=== PATIENT | male | born 1955 | race African-American/Black ===

== ENCOUNTER 2019-05-21 07:49 | Day surgery (SDC) | payer MEDICARE ==
--- NOTE | 2019-05-21 09:38 | RAD ---
TOTAL SPINE MYELOGRAM: 05/21/2019 HISTORY: Myelopathy and pain. FINDINGS: Informed consent obtained prior to the procedure. Dietetic Intern imaging of the cervical spine demonstrates anterior discectomy and fusion hardware at C3-4. The re is disc space narrowing with degenerative endplate change and anterior osteophyte formation at C6-7. There is prominent multilevel anterior osteophyte formation throughout the mid and lower thorac ic spine. Dietetic Intern imaging of the lumbar spine demonstrates multilevel disc space narrowing. Bilateral pedicle screws are present at the L4 and L5 levels with vertically oriented interlocking rods and an intervertebral disc device. There is no significant anterolisthesis or retrolisthesis. At the L5-S1 level there is disc space narrowing and degenerative endplate change. The patient was placed on the fluoroscopic table in the oblique prone position and the skin overlying the lower lumbar spine was prepped and draped in a normal sterile fashion. The skin was anesthetized at the L4 level. With intermittent fluoroscopic guidance, a 22 gauge spinal needle was a dvanced into the thecal sac and removal of the stylet yielded clear cerebrospinal fluid. Approximately 12 cc of Isovue-300 was injected, outlining the nerve roots of the cauda equina and paul ling the thecal sac. The needle was removed. The patient tolerated the procedure well. The patient's head was tilted down to extend contrast media into the thoracic and cervical regions. CT myelogram was then performed of the cervical, thoracic, and lumbar spine. EXPOSURE DATA: 1.5 minutes of fluoroscopic time 687.8 microgray/cm2 IMPRESSION: Multilevel postoperative and degenerative change within the spine as detailed above. Successful total spine myelogram. CT myelogram to follow. Transcribed Date/Time: 05/21/2019 10:57 AM
--- NOTE | 2019-05-21 09:54 | CT ---
CT MYELOGRAM CERVICAL SPINE: 05/21/2019 HISTORY: Cervical spondylosis. COMPARISON: None. TECHNIQUE: Following the intrathecal administration of iodinated contrast media, axial CT imaging is obtained at 2.5 mm intervals through the cervical spine with coronal and sagittal reformatted imaging. FINDINGS: Anterior discectomy and fusion hardware present at C3-4. There is mild/moderate degenerative change at the atlantoaxial interspace. The craniocervical junctio n is intact. There is mild anterolisthesis at C3-4 measuring 3 mm, at C6-7 measuring 4 mm and at C7-T1 measuring 4 mm. The C1 ring is intact. The dens, occipital condyles and the atlantoaxial relationship demonstrate no acute findings. C2-3: Right sided facet and uncovertebral osteophyte formation causes mild right neural foraminal ella nosis. There is left facet and uncovertebral osteophyte. No central canal or left neural foraminal stenosis. C3-4: Small posterior osteophyte with mild central canal stenosis. Bilateral facet and uncovertebral osteophyte formation, right greater than left. Moderate bilateral neural foraminal stenosis, right greater than left. C4-5: Minimal disc bulge. No significant central canal stenosis. Prominent left sided facet and uncov ertebral osteophyte formation with moderate/severe left neural foraminal stenosis. No significant right neural foraminal stenosis. C5-6: No significant central canal stenosis. Bilateral facet and uncovertebral osteophyte formation, left greater than right. Moderate left and mild right neural foraminal stenosis. C6-7: There is disc space narrowing and mild anterior osteophyte formation. Bilateral facet hypertrop hy noted with mild/moderate right neural foraminal stenosis and mild left neural foraminal stenosis. C7-T1: Bilateral facet and uncovertebral osteophyte formation with moderate/severe bilateral neural f oraminal stenosis, left greater than right. Mild central canal stenosis on the basis of disc bulge. No acute fracture. No lytic or blastic bone lesion. Imaged lung apices appear unremarkable. IMPRESSION: Postoperative and degenerative change within the cervical spine as detailed above. Transcribed Date/Time: 05/21/2019 10:06 AM
--- NOTE | 2019-05-21 10:21 | CT ---
CT MYELOGRAM LUMBAR SPINE: 05/21/2019 HISTORY: Lumbar spondylosis. COMPARISON: None. TECHNIQUE: Axial CT imaging through the lumbar spine at 2.5 mm intervals following the intrathecal administratio n of iodinated contrast media. Coronal and sagittal reformatted imaging obtained. FINDINGS: There is good opacification of the contents of the thecal sac. 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 There is thickening of the left adrenal gland which attains an adreniform shape. There is a punctate calcification within the partially imaged right kidney suggesting a small intrarenal calculus. There are bilateral L4 and L5 pedicle screws with vertically oriented interlocking rods. There is an intervertebral disc device at the L4-5 level. The conus medullaris terminates at L1-2. There is mild anterolisthesis of L4 on L5 measuring 4 mm. T12-L1: Minimal disc bulge. Moderate bilateral facet hypertrophy. Anterior and right lateral osteophy te formation. Mild central canal stenosis and mild bilateral neural foraminal stenosis. L1-2: There is disc space narrowing with mild disc bulge and anterior osteophyte formation. There is also mild bilateral facet hypertrophy. There is mild central canal stenosis and mild/moderate bilateral neural foraminal stenosis. L2-3: There is disc space narrowing and vacuum disc formation with anterior osteophyte formation and disc bulge. There is a suggestion of a central disc extrusion with superior migration on the sagittal imaging, leading to severe central canal stenosis at the axial level of the L2-3 disc space as well as severe stenosis posterior to the mid/lower aspect of the L2 vertebral body. There is prominent bilateral facet hypertrophy and hypertrophy of the ligamentum flavum at the L2-3 level as w ell with associated moderate/severe bilateral neural foraminal stenosis. L3-4: There is disc space narrowing and disc bulge. There is severe central canal stenosis. Vacuum di sc formation noted. Bilateral facet hypertrophy and hypertrophy of the ligamentum flavum noted. Anterior and right lateral osteophyte formation noted with severe bilateral neural foraminal stenosis . Throughout the entire length of the L3 vertebral body the nerve roots of the cauda equina appear compressed and clumped with a posterior location. L4-5: Bilateral facet hypertrophy. No significant central canal or neural foraminal stenosis. L5-S1: There is disc space narrowing and vacuum disc formation with a disc osteophyte complex. There is prominent bilateral facet hypertrophy with moderate bilateral neural foraminal stenosis. There is mild central canal stenosis. No worrisome lytic or blastic bone lesion. No acute fracture or evidence of dislocation. There is prominent redundancy and serpiginous nature of the nerve roots of the cauda equina posterior to the L4 and L5 vertebral body. In addition, there are areas of thickening and clumping of nerve roots of the cauda equina posteriorly/laterally at the L4 and L5 levels. There are numerous serpiginous/tortuous structures adjacent to the distal thoracic cord and involving the thecal sac just inferior to the cauda equina, which is felt to most likely represent numerous tortuous redundant nerve roots of the cauda equina. Some of the serpiginous structures within the the karson sac, including abutting the distal cord, may represent vascular structures. This would most likely be on the basis of venous congestion secondary to the degree of severe stenosis at L2 through L4. A vascular lesion could not be fully excluded but is felt less likely given the severe degenerative change within the lumbar spine. IMPRESSION: Postoperative and degenerative change within the lumbar spine as detailed above. There is severe sten osis from the mid portion of the L2 vertebral body through the L3-4 disc space. There is compression of nerve roots of the cauda equina from the L2 level through the L3-4 level with associat ed marked tortuosity and redundancy of nerve roots of the cauda equina above and below these levels. Clumping of nerve roots of the cauda equina distally suggests a degree of arachnoiditis. Ther e is a probable central disc extrusion with superior migration emanating from the L2-3 disc as well. These findings may be better assessed with MRI. The levels in question are above the postoperative sepulveda rdware and thus would likely be adequately assessed via MRI. Transcribed Date/Time: 05/21/2019 10:44 AM
--- NOTE | 2019-05-21 10:30 | CT ---
CT MYELOGRAM THORACIC SPINE: 05/21/2019 HISTORY: Myelopathy. TECHNIQUE: Axial CT imaging at 2 mm intervals through the thoracic spine with coronal and sagittal reformatted i maging. FINDINGS: The imaged lung parenchyma appears grossly unremarkable. There is mild diffuse dilation of the esopha haile, etiology uncertain. This may be better assessed with a follow-up barium swallow. These findings can be seen on the basis of a distal esophageal stricture. There is good opacification of the contents of the thecal sac within the thoracic spine. A punctate f ocus of gas is seen posterior to the T10 vertebral body, likely associated with contrast injection. There are subtle serpiginous filling defects along the ventral and dorsal aspect of the distal thorac ic cord at the T10, T11, and T12 levels, better assessed on the lumbar spine CT myelogram. There is no significant anterolisthesis or retrolisthesis noted within the thoracic spine and there is no sign ificant central canal stenosis within the thoracic spine. On the basis of minimal disc bulge there is mild central canal stenosis at T10-11 and T11-12. There is prominent anterior osteophyte formation on the right, which includes the T5-6 through T9-10 levels. There is multilevel bilateral facet hypertrophy noted throughout the thoracic spine with multilevel bilateral mild neural foraminal stenosis. No acute osseous abnormality is seen. No worriso me lytic or blastic bone lesion. IMPRESSION: No significant central canal stenosis within the thoracic spine. There is a mild dilation of the esophagus. Recommend GI consultation and barium swallow CODE T Transcribed Date/Time: 05/21/2019 10:50 AM
[2019-05-21 12:57] VITALS: BMI 30.4
[2019-05-21 13:02] VITALS: BP 149/75; TEMP 98
== END 2019-05-21 10:30 | disposition home or self-care (01) ==
LOC: RAD 07:49
PROVIDERS: ATTEND Neurological Surgery
DX: M43.12 Spondylolisthesis, cervical region (principal); M43.16 Spondylolisthesis, lumbar region; M48.02 Spinal stenosis, cervical region; M48.061 Spinal stenosis, lumbar region without neurogenic claudication; M25.78 Osteophyte, vertebrae; E11.9 Type 2 diabetes mellitus without complications; Z79.84 Long term (current) use of oral hypoglycemic drugs; Z79.899 Other long term (current) drug therapy; Z98.1 Arthrodesis status
CPT/HCPCS: 62305; 72126; 72129; 72132

== ENCOUNTER 2019-08-03 06:04 | Inpatient (IN) | payer MEDICARE ==
[2019-07-31 11:05] VITALS: BMI 30.4
[2019-08-03] MEDS ORDERED: Fentanyl 100 MCG/2 ML VIAL ONE ×4 (06:32→10:29)
[2019-08-03] MEDS ORDERED: Midazolam HCl 2 mg/2 ml Vial ONE (06:32)
[2019-08-03 06:46] LABS: #Basophils 0.1 thou/uL (0.0-0.2); #Eosinphils 0.2 thou/uL (0.0-0.7); #Monocytes 0.5 thou/uL (0.11-0.59); #Neutrophils 2.9 thou/uL (1.40-6.50); %Basophils 1.5 % (0.0-1.0); %Eosinophils 3.8 % (0.0-10.0); %Lymphocytes 22.6 % (21.0-51.0); %Monocytes 10.2 % (0.0-10.0); %Neutrophils 61.9 % (42.0-75.0); Hemoglobin 14.1 g/dL (14.0-18.0); Mean Corpuscular HGB CONC 34.6 g/dL (32.0-36.0); Mean Corpuscular Hemoglobin 31.3 pg (27.0-31.0); Mean Corpuscular Volume 90.7 fL (78.0-98.0); Mean Platelet Volume 7.2 fL (7.4-10.4); Platelet Count 212 thou/uL (130-400); RBC Distribution Width 12.3 % (11.5-14.5); Red Blood Cell (RBC) Count 4.49 mill/uL (4.70-6.10); White Blood Cell (WBC) Count 4.6 thou/uL (4.8-10.8)
[2019-08-03 06:58] LABS: Anion Gap 14 mmol/L (10-20); BUN (Urea Nitrogen) 12 mg/dL (8.4-25.7); Calc. Creatinine Clearance 101 mL/min (70-130); Calcium 9.7 mg/dL (7.8-10.44); Carbon Dioxide 25 mmol/L (23-31); Chloride 107 mmol/L (98-107); Estimated GFR-MDRD 73; Glucose 141 mg/dL (80-115); Potassium 4.2 mmol/L (3.5-5.1); Sodium 142 mmol/L (136-145)
[2019-08-03] MEDS ORDERED: HYDROmorphone 2 MG/ML VIAL SLOW IVP PRN (09:11)
[2019-08-03] MEDS ORDERED: Ondansetron HCl/PF 4 MG/2 ML Vial IVP PRN (09:11)
[2019-08-03] MEDS ORDERED: Promethazine HCl 25 MG/ML VIAL SLOW IVP PRN (09:11)
[2019-08-03] MEDS ORDERED: Promethazine HCl 25 MG/ML VIAL IM PRN ×2 (09:11→11:52)
[2019-08-03] MEDS ORDERED: EPHEDRINE 25 MG/5 ML SYRINGE ONE (09:41)
[2019-08-03] MEDS ORDERED: Succinylcholine Chloride 20 MG/ML 10 ml SYRINGE FS ONE (09:41)
[2019-08-03] MEDS ORDERED: Lidocaine 1% PF 5 ML VIAL ONE (09:41)
[2019-08-03] MEDS ORDERED: Ondansetron PF 4 MG/2 ML Vial ONE (09:41)
[2019-08-03] MEDS ORDERED: Esmolol 100 MG/10 ML VIAL ONE (09:41)
[2019-08-03] MEDS ORDERED: PROPOFOL 200 MG/20 ML VIAL ONE (09:41)
[2019-08-03] MEDS ORDERED: Rocuronium Bromide 10 MG/ML (10ML VIAL) ONE (09:41)
--- NOTE | 2019-08-03 09:43 | OP ---
DATE OF PROCEDURE: 08/03/2019 FORENSICS TEAM DIRECTOR: Caroline Norman PA-C PROCEDURES PERFORMED: Removal of hardware L4-L5, exploration of spinal fusion L4-L5, L2 through L4 decompressive laminectomy, posterolateral arthrodesis, pedicle screw instrumentation L2 through L4, demineralized bone matrix, and local morselized autograft. DESCRIPTION OF PROCEDURE: The patient was brought to the operating room and intubated. He was rolled in a prone position on gel-filled chest rolls. The previous incision was reopened and extended superiorly. We exposed the previous hardware at L4-L5. We explored the spinal fusion at L4-L5 and it seemed to be solid. We removed the nuts and octavia at right L4-L5. At left L4-L5, the hardware was covered in bony fusion graft. We did not attempt to remove this. Next, after complete bilateral L2 through L4 exposure was achieved, we performed L3, inferior L2, and superior L4 laminectomies, completely decompressing L2-L3 and L3-L4 interspaces. Next, pedicle screws were placed at right L2 and right L3 using lateral fluoroscopic guidance. The octavia was then secured from L2 through L4 secured by nuts, which were final tightened. The wound was extensively irrigated. MAC hemostasis was secured. A combination of demineralized bone matrix and local morselized autograft were laid over the left lamina and posterolateral surfaces for the purpose of arthrodesis. Vancomycin powder was applied and the wound was then closed in anatomic layers over drain. Job ID: [id number]
[2019-08-03] MEDS ORDERED: Tamsulosin HCl 0.4 MG CAP ONE (10:42)
[2019-08-03] MEDS ORDERED: diphenhydrAMINE 25 MG CAP PO PRN (11:52)
[2019-08-03] MEDS ORDERED: Mag-Al 1200 mg/1200 mg/30 ML UDCUP PO PRN (11:52)
[2019-08-03] MEDS ORDERED: traMADol HCl 50 MG TAB PO PRN ×2 (11:52)
[2019-08-03] MEDS ORDERED: Promethazine 25 MG TAB PO PRN (11:52)
[2019-08-03] MEDS ORDERED: Milk Of Magnesia 30 ML UDCUP PO PRN (11:52)
[2019-08-03] MEDS ORDERED: diphenhydrAMINE 50 MG/ML VIAL IVP PRN (11:52)
[2019-08-03] MEDS ORDERED: tiZANidine HCl 4 MG TAB PO PRN (11:52)
[2019-08-03] MEDS ORDERED: Bisacodyl 10 MG SUPP PR PRN (11:52)
[2019-08-03] MEDS ORDERED: Promethazine HCl 12.5 MG SUPP PR PRN (11:52)
[2019-08-03] MEDS ORDERED: HYDROcodone/Acetaminophen 10/325 mg Tablet PO PRN ×2 (11:52)
[2019-08-03] MEDS ORDERED: Morphine 4 MG/ML VIAL SLOW IVP PRN (11:52)
[2019-08-03] MEDS ORDERED: Ondansetron PF 4 MG/2 ML Vial IVP PRN (11:54)
[2019-08-03] MEDS ORDERED: Morphine 2 MG/ML SYRINGE SLOW IVP PRN (11:56)
[2019-08-03] MEDS: Sodium Chloride 0.9% 1,000 ML IV SCH (14:35)
[2019-08-03] MEDS: CEFAZOLIN 2 GM in Premix Bag 1 BAG IVPB SCH ×2 (14:42→21:48)
[2019-08-03] MEDS ORDERED: Tamsulosin HCl 0.4 MG CAP PO SCH (17:15)
[2019-08-03] MEDS ORDERED: Insulin Regular 300 UNITS/3 ML VIAL SC PRN (17:20)
[2019-08-03] MEDS ORDERED: Dextrose 50% Abboject 50 ML SYRINGE SLOW IVP PRN ×2 (17:20→17:34)
[2019-08-03] MEDS ORDERED: Dextrose 5% in Water 1,000 ML IV PRN ×2 (17:20→17:34)
[2019-08-03] MEDS ORDERED: Amlodipine 5 MG TAB PO SCH (17:30)
[2019-08-03] MEDS ORDERED: HumaLOG 300 UNITS/3 ML VIAL SC PRN (17:34)
[2019-08-03] MEDS ORDERED: Pregabalin 50 MG CAP PO SCH ×3 (21:00→21:30)
[2019-08-03] MEDS ORDERED: Atorvastatin Calcium 20 MG TAB PO SCH ×2 (21:00)
[2019-08-03] MEDS: Acetaminophen 325 MG TAB PO PRN (21:48)
[2019-08-04] MEDS: Sodium Chloride 0.9% 1,000 ML IV SCH ×2 (01:37→13:34)
[2019-08-04] MEDS: Tamsulosin HCl 0.4 MG CAP PO SCH (05:39)
--- NOTE | 2019-08-04 06:33 | PRG ---
DATE OF SERVICE: 08/04/2019 SUBJECTIVE: The patient is a 63-year-old male, who is on postoperative day #1, status post removal of hardware and extension of his lumbar fusion with decompression at L2-L4. Following the surgery, he was transitioned to the Med surgery floor, where his pain has been well-controlled with p.o. medications. He did have some issues with overnight urinary retention and was treated with Flomax, but also required p.r.n. straight cath x2. He reports this morning he is urinating much better on his own. A ROBBIE drain was placed intraoperatively. However, once he was transferred to the floor, there was very minimal output. However, the patient was having quite a bit of incisional drainage. His dressing has been changed several times, but this morning his ROBBIE drain is not working appropriately. It is full of dark red blood at the bedside. OBJECTIVE: On exam this morning, the patient is sitting up comfortably. He is in no acute distress. He has free active range of motion of all extremities. Exam of the incision appears clean and dry. There is no active drainage noted at this time. There is scant amount of drainage on the pad. His ROBBIE bulb is full of dark red blood. PLAN: We will continue to monitor his incision and ROBBIE output. We will also continue to monitor his urinary retention if this is continuing to improve. I anticipate home in the next few days. Job ID: [id number]
[2019-08-04] MEDS: metFORMIN 500 MG TAB PO SCH (08:08)
[2019-08-04] MEDS: Cyanocobalamin (Vitamin B-12) 1,000 MCG TAB PO SCH (08:08)
[2019-08-04] MEDS: Amlodipine 5 MG TAB PO SCH (08:09)
[2019-08-04] MEDS: Pregabalin 50 MG CAP PO SCH ×2 (08:09→20:03)
[2019-08-04] MEDS: CEFAZOLIN 2 GM in Premix Bag 1 BAG IVPB SCH ×3 (08:11→23:59)
[2019-08-04] MEDS ORDERED: Tamsulosin HCl 0.4 MG CAP PO SCH (09:00)
--- NOTE | 2019-08-04 10:02 | CON ---
DATE OF CONSULTATION: REASON FOR CONSULTATION: Medical management after spine surgery. BRIEF HISTORY OF PRESENT ILLNESS: This is a 63-year-old male with past medical history of chronic back pain and extensive back surgeries. Also, history of hypertension, diabetes mellitus, BPH, and neuropathy. He is postoperative day 0 after removal of hardware and extension of his lumbar fusion with decompression of L2 through L4. The patient was seen postoperatively. His pain appears to be controlled. He denies any chest pain, shortness of breath, nausea, vomiting, palpitations, or dizziness. His diabetes is controlled at home with diet and metformin 1000 mg orally daily. He really does not take anything for high blood pressure. PHYSICAL EXAMINATION: GENERAL: The patient is alert and oriented x3. HEENT: Head is normocephalic and atraumatic. Extraocular muscles intact. NECK: Supple. HEART: Revealed normal S1 and S2. Regular rate and rhythm. No murmurs, rubs, or gallops. LUNGS: Clear to auscultation bilaterally. ABDOMEN: Soft, nontender, and nondistended. REVIEW OF SYSTEMS: Negative except as noted in HPI. ASSESSMENT AND PLAN: 1. Diabetes mellitus. We will initiate a medium sliding scale and continue metformin. Measure sugar levels a.c. and at bedtime. 2. Hypertension. Amlodipine 5 mg orally daily was initiated. 3. Benign prostatic hypertrophy. Tamsulosin 0.4 mg was initiated. The patient required straight catheterization x2 for urine retention. 4. Spinal procedure. Continue management per Surgical Team. Job ID: [id number]
[2019-08-04] MEDS: Acetaminophen 325 MG TAB PO PRN (15:32)
[2019-08-05] MEDS: Sodium Chloride 0.9% 1,000 ML IV SCH (04:59)
[2019-08-05] MEDS: Tamsulosin HCl 0.4 MG CAP PO SCH (05:00)
--- NOTE | 2019-08-05 06:14 | PRG ---
DATE OF SERVICE: 08/05/2019 SUBJECTIVE: The patient is now postoperative day #2, status post removal of hardware and extension of fusion at L2-L4. The patient's pain has been well-controlled with p.o. medications. He has mobilized slowly with the assistance of Physical Therapy. His incisional drainage has improved significantly and his ROBBIE has been working appropriately. During the day yesterday, he had 70 mL of output, but this trended down significantly with minimal output overnight. He had continued urinary retention and required placement of a Caceres catheter yesterday morning. OBJECTIVE: On exam, this morning patient is awake, alert, in no acute distress. He has free active range of motion of all extremities. No focal motor weakness. No reflex asymmetry. Incision is clean, dry, and intact. There is only scant amount of dark red blood in the ROBBIE bulb. PLAN: We will go ahead and remove his ROBBIE drain and discontinue his Ancef. We will also remove his Caceres catheter and attempt a void trial this morning. If he fails, we will require replacement and a urology consult since he has not seen Urology in the past. If he passes, I feel that he could likely go home later today. We will follow along closely and possibly discharge this afternoon. Job ID: [id number]
[2019-08-05] MEDS: Pregabalin 50 MG CAP PO SCH (08:03)
[2019-08-05] MEDS: metFORMIN 500 MG TAB PO SCH (08:03)
[2019-08-05] MEDS: Amlodipine 5 MG TAB PO SCH (08:04)
[2019-08-05] MEDS: Cyanocobalamin (Vitamin B-12) 1,000 MCG TAB PO SCH (08:04)
--- NOTE | 2019-08-05 14:59 | PDOC.HOSPP ---
- Subjective Encounter Date: 08/05/19 Subjective: No new complaints. He is voiding well and his Vitals are stable. - Objective Vital Signs & Weight: Vital Signs (12 hours) Temp Pulse Resp BP BP BP Pulse Ox 08/05/19 10:57 99.2 F 91 16 147/73 H 96 08/05/19 08:04 81 150/82 H 08/05/19 07:40 98.4 F 81 16 150/82 H 94 L 08/05/19 03:43 98.7 F 87 18 117/64 94 L Weight Weight 250 lb I&O: 08/04/19 08/05/19 08/06/19 06:59 06:59 06:59 Intake Total 860 4225 Output Total 3982 4420 Balance -710 -130 Result Diagrams: 08/03/19 06:33 08/03/19 06:33 Hospitalist ROS - Medication Medications: Active Medications Generic Name Dose Route Start Last Admin Trade Name Freq PRN Reason Stop Dose Admin Acetaminophen 650 mg 08/03/19 21:28 08/04/19 15:32 Tylenol PO 650 mg Q6H PRN Administration Headache/Fever or Pain Al Hydroxide/Mg Hydroxide 30 ml 08/03/19 11:52 08/04/19 20:19 Maalox PO 30 ml Q4H PRN Administration Heartburn or Indigestion Amlodipine Besylate 5 mg 08/04/19 09:00 08/05/19 08:04 Norvasc PO 5 mg DAILY EDER Administration Cyanocobalamin 1,000 mcg 08/04/19 09:00 08/05/19 08:04 Vitamin B-12 PO 1,000 mcg DAILY EDER Administration Sodium Chloride 1,000 mls @ 75 mls/hr 08/03/19 11:52 08/05/19 04:59 Normal Saline 0.9% IV Not Given .[id number] EDER Magnesium Hydroxide 30 ml 08/03/19 11:52 08/05/19 11:56 Milk Of Magnesium PO 30 ml Q12H PRN Administration Constipation Metformin HCl 1,000 mg 08/04/19 08:00 08/05/19 08:03 Glucophage PO 1,000 mg QAM-WM EDER Administration Mirabegron 25 mg 08/04/19 09:00 08/05/19 08:03 Myrbetriq Er PO 25 mg QAM EDER Administration Morphine Sulfate 4 mg 08/03/19 11:52 08/03/19 14:34 Morphine SLOW IVP 4 mg Q1H PRN Administration SEVERE BREAKTHROUGH PAIN Ondansetron HCl 4 mg 08/03/19 11:54 08/03/19 14:35 Zofran IVP 4 mg Q8H PRN Administration Nausea/Vomiting Pregabalin 200 mg 08/04/19 09:00 08/05/19 08:03 Lyrica PO 200 mg BID EDER Administration Tamsulosin HCl 0.4 mg 08/04/19 06:00 08/05/19 05:00 Flomax PO 0.4 mg 0600 EDER Administration Tizanidine HCl 4 mg 08/03/19 11:52 08/03/19 14:35 Zanaflex PO 4 mg Q6H PRN Administration MUSCLE SPASM Hosp A/P (1) HTN (hypertension) Code(s): I10 - ESSENTIAL (PRIMARY) HYPERTENSION Status: Acute (2) BPH (benign prostatic hyperplasia) Code(s): N40.0 - BENIGN PROSTATIC HYPERPLASIA WITHOUT LOWER URINRY TRACT SYMP Status: Acute (3) DM2 (diabetes mellitus, type 2) Status: Acute - Plan His medical issues are stable for Discharge.
[2019-08-05 15:50] VITALS: BP 149/71; TEMP 99.5
--- NOTE | 2019-08-06 14:09 | DIS ---
DATE OF ADMISSION: 08/03/2019 DATE OF DISCHARGE: 08/05/2019 HOSPITAL COURSE: The patient is a 63-year-old male, recently evaluated in our office for progressive back pain and claudicatory symptoms. He was found to have significant stenosis from L2-L4 above his prior fusion. He underwent removal of hardware, decompression, extension, and fusion at L2-L4. Following surgery, he was transitioned to the Med/Surg floor, where his pain was well controlled with p.o. medications. ROBBIE drain remained in place and was removed on postoperative day #2. The patient suffered with some urinary retention, but this improved during his admission course. He ambulated easily in the hallways. He was discharged on postoperative day #2. I have discussed home care precautions. We will follow up with the patient in the office in 2 weeks. Job ID: [id number]
== END 2019-08-05 17:30 | disposition home or self-care (01) | DRG 460 ==
LOC: SURG A 06:04
PROVIDERS: ADMIT Neurological Surgery; ATTEND Neurological Surgery
PROC: 0SG1071 Fusion of 2 or more Lumbar Vertebral Joints with Autologous Tissue Substitute, Posterior Approach, Posterior Column, Open Approach (ICD-10-PCS; principal; 2019-08-03)
PROC: 01NB0ZZ Release Lumbar Nerve, Open Approach (ICD-10-PCS; 2019-08-03)
PROC: 0SP004Z Removal of Internal Fixation Device from Lumbar Vertebral Joint, Open Approach (ICD-10-PCS; 2019-08-03)
DX: M48.062 Spinal stenosis, lumbar region with neurogenic claudication (principal); Z91.041 Radiographic dye allergy status; Z96.653 Presence of artificial knee joint, bilateral; Z98.890 Other specified postprocedural states; E78.5 Hyperlipidemia, unspecified; M19.91 Primary osteoarthritis, unspecified site; N40.0 Benign prostatic hyperplasia without lower urinary tract symptoms; E11.40 Type 2 diabetes mellitus with diabetic neuropathy, unspecified; R33.9 Retention of urine, unspecified; I10 Essential (primary) hypertension
CPT/HCPCS: 36415; 76000; 80048; 85025; 93005; 93010; C1713; C1768; J0690; J2001; J2250; J2270; J2405; J2704; J3010; J3370; J3490

== ENCOUNTER 2019-08-18 10:29 | Outpatient (CLI) | payer MEDICARE ==
--- NOTE | 2019-08-18 11:22 | RAD ---
LUMBAR SPINE 2 VIEWS: Date: 08/18/2019 COMPARISON: None. HISTORY: Evaluate lumbar spine following surgery. FINDINGS: There is a pedicle screw on the right at L5. There are L2, L3, and L4 right-sided pedicle screws with a vertically oriented interlocking octavia. There is also a left pedicle screw at the L4 and L5 level wi th a vertically oriented interlocking octavia. There is an intervertebral disc device at the L4-5 level. Bilateral laminectomy changes are noted at L2, L3, and L4. There is anterolisthesis of L4 on L5 measuring approximately 4.0 mm. There is disc space narrowing at L1-2, L2-3, L3-4, L4-5, and L5-S1, with associated degenerative end plate change, most prominent at L1-2, L2-3, and L5-S1. No acute fracture or dislocation. Cutaneous leroy are noted posteriorly. IMPRESSION: Postoperative and degenerative change of the lumbar spine as detailed above. POS: ISABEL
== END 2019-08-18 10:30 | disposition home or self-care (01) ==
LOC: TBSIIMAG 10:29
PROVIDERS: ATTEND Neurological Surgery
DX: M48.062 Spinal stenosis, lumbar region with neurogenic claudication (principal); M47.816 Spondylosis without myelopathy or radiculopathy, lumbar region; Z98.890 Other specified postprocedural states
CPT/HCPCS: 72100